=== PATIENT | female | born 1975 | race Native Hawaiian/Other Pacific Islander ===

== ENCOUNTER 2019-06-07 20:15 | Emergency (ER) | payer MEDICARE, MEDICAID, SELFPAY ==
[2019-06-07 20:16] VITALS: BP 90/62; PULSE 92; RESP 18; TEMP 36.4; O2SAT 97; BMI 26.1
--- NOTE | 2019-06-07 21:33 | ED.VISSUMM ---
- ER Visit Summary Date of Service: 06/07/19 Chief Complaint: Peg History of Present Illness: The patient is a 44 F presenting stating that she feels manic. This has been ongoing for the past 3 days. She states she has not slept in 3 days. She has racing thoughts. She has auditory hallucinations. She denies suicidal or homicidal ideation. She has a history of schizophrenia, bipolar disorder, OCD. Physical Examination: Vitals are stable. Patient is afebrile. Alert no acute distress. HEENT exam is unremarkable. Neck is supple. Lungs are clear and equal bilaterally. Heart is regular rate and rhythm. Abdomen is soft nontender nondistended. Extremities are unremarkable. Skin is warm and dry. No focal neurologic deficit. Flight of ideas. No suicidal or homicidal ideation. Remainder of exam is unremarkable. Emergency Department Course and Treatment: CBC, chemistries unremarkable. hCG negative. Tox positive for methamphetamine, benzo, THC. Alcohol negative. Patient was given IV fluids. She was observed in the ED and will be checked out to the oncoming physician. Disposition: Pending Impression: History of schizophrenia and bipolar disorder This note was generated with [employer] dictation software. It may contain incorrect words, spelling, and punctuation that were not noted in review of the chart prior to signing ED Disposition - Plan for ED Patient: Instructions: SCHIZOPHRENIA, General
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
[2019-06-07 21:57] VITALS: BP 87/56; PULSE 70; RESP 16; O2SAT 97
[2019-06-07] MEDS: 0.9% Normal Saline 1,000 ML 999 ML IV (21:58)
[2019-06-07 22:16] LABS: Amphetamine Urine VISTA NEGATIVE (<1000 ng/mL); Barbiturate Urine VISTA NEGATIVE (< 200 ng/mL); Benzodiazepine Urine VISTA POSITIVE (< 200 ng/mL); Cocaine Urine VISTA NEGATIVE (< 300 ng/mL); Ecstacy Urine VISTA POSITIVE (< 500 ng/mL); Methadone Urine VISTA NEGATIVE (< 300 ng/mL); PCP Urine VISTA NEGATIVE (< 25 ng/mL); THC Urine VISTA POSITIVE (< 50 ng/mL); Vista UDS pH Range 6
[2019-06-07 22:18] LABS: Absolute Lymphocyte Count 2.31 X10^3/uL (0.83-4.51); Absolute Neutrophil Count 3.6 X10^3/uL (2.0-7.7); Basophil# 0.04 X10^3/uL; Basophil% 0.6 % (0-1); Eosinophil# 0.14 X10^3/uL; Eosinophils% 2.1 % (0-5); Hematocrit 39.2 % (37-47); Hemoglobin 13.4 g/dL (12.0-15.0); Lymphocyte # 2.31 X10^3/ul (4.0); Lymphocyte % 34.6 % (19-41); Mean Corp Hgb Conc 34.2 g/dL (32-36); Mean Corpuscular Hgb 29.8 pg (27.0-32.0); Mean Corpuscular Volume 87.1 fL (81-99); Mean Platelet Vol. 10.4 fl (6.2-12.0); Monocyte# 0.56 X10^3/uL; Monocyte% 8.4 % (0-10); NRBC Flagged by Analyzer 0 % (0-5); Platelet Count 212 K/mm3 (150-450); RBC Distribution Width CV 11.5 % (11.6-14.6); RBC Distribution Width SD 37.2 fl (35.1-43.9); White Blood Count 6.7 K/mm3 (4.4-11.0)
[2019-06-07 22:27] LABS: Internal QC Validated? YES +Cl - CLEAR BKGD; Pregnancy, Serum, hCG Quali. NEGATIVE Negative
[2019-06-07 22:32] LABS: Anion Gap 7 (5-15); BUN 11 mg/dL (7-18); BUN/Creat Ratio 14.7 RATIO (10-20); Chloride 99 mmol/L (98-107); Creatinine, Serum 0.75 mg/dL (0.55-1.02); EST Glomerular Filtration Rate 90 mL/min (>60); Est Glom Filt Rate - Afr Amer 109 mL/min (>60); Estimated Creatinine Clearance 87.93 ml/min; Glucose 168 mg/dL (74-106); Potassium 3.5 mmol/L (3.5-5.1); Sodium Level 135 mmol/L (136-145)
--- NOTE | 2019-06-07 22:36 | CM.ED ---
SOCIAL WORK DISCUSSED POSITIVE TOX SCREEN WITH DR. REID AND PATIENT. PATIENT ASKING IF METH COULD HAVE BEEN IN [place] SHE SMOKED. PATIENT REMAINS IN AGREEMENT WITH PLAN FOR HOME GOING AND FOLLOW UP WITH [facility] TOMORROW. 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
[2019-06-07 22:52] LABS: Alcohol, Blood (Medical)-Serum < 3.0 mg/dL
--- NOTE | 2019-06-07 23:40 | ED.RN ---
DR REID TO RN TO HOLD BENADRYL. PT IS RESTING COMFORTABLE IN ROOM & BP IS HYPOTENSIVE.
--- NOTE | 2019-06-07 23:58 | ED.DEP ---
ED Disposition - Plan for ED Patient: Instructions: SCHIZOPHRENIA, General
[2019-06-08] MEDS: 0.9% Normal Saline 1,000 ML 999 ML IV (00:02)
[2019-06-08 00:03] VITALS: BP 79/48; PULSE 88; RESP 14; O2SAT 97
== END 2019-06-08 01:09 | disposition home or self-care (01) ==
LOC: ED 22:11
PROVIDERS: Emergency Provider Emergency Medicine
DX: F31.9 Bipolar disorder, unspecified (principal); F42.9 Obsessive-compulsive disorder, unspecified; F20.9 Schizophrenia, unspecified; I95.9 Hypotension, unspecified; E11.9 Type 2 diabetes mellitus without complications; Z79.4 Long term (current) use of insulin; Z79.899 Other long term (current) drug therapy
CPT/HCPCS: 80048; 80307; 80320; 84703; 85025; 96360; 96361; 99282; J7030; G0480

== ENCOUNTER 2023-09-21 12:50 | Emergency (ER) | payer MEDICARE, MEDICAID, SELFPAY ==
[2023-09-21 12:54] VITALS: BP 145/99; PULSE 78; RESP 16; TEMP 36.4; O2SAT 98; BMI 30.2
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
--- NOTE | 2023-09-21 13:33 | ED.RN ---
NO OLD EKG
[2023-09-21 13:36] LABS: Absolute Lymphocyte Count 1.91 X10^3/uL (0.83-4.51); Absolute Neutrophil Count 4.4 X10^3/uL (2.0-7.7); Basophil# 0.08 X10^3/uL; Basophil% 1.1 % (0-1); Eosinophil# 0.22 X10^3/uL; Hematocrit 39.4 % (37-47); Hemoglobin 13.1 g/dL (12.0-15.0); Lymphocyte # 1.91 X10^3/ul (0.83-4.51); Lymphocyte % 26.5 % (19-41); Mean Corp Hgb Conc 33.2 g/dL (32-36); Mean Corpuscular Hgb 28.9 pg (27.0-32.0); Mean Corpuscular Volume 86.8 fL (81-99); Mean Platelet Vol. 10.4 fl (6.2-12.0); Monocyte# 0.55 X10^3/uL; Monocyte% 7.6 % (0-10); NRBC Flagged by Analyzer 0 % (0-5); Neutrophil # 4.43 X10^3/uL (2.7-7.7); Neutrophil % 61.4 % (47-70); POSITIVE COUNT YES; RBC Distribution Width CV 11.9 % (11.6-14.6); RBC Distribution Width SD 38.1 fl (35.1-43.9); Red Blood Count 4.54 M/mm3 (4.2-5.4); White Blood Count 7.2 K/mm3 (4.4-11.0)
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
[2023-09-21 13:51] LABS: Differential Indicated SCAN CRITERIA MET
[2023-09-21 13:53] LABS: Platelet Estimate ADEQUATE (ADEQ)
[2023-09-21 13:58] LABS: Anion Gap 2 (5-15); BUN 10 mg/dL (7-18); BUN/Creat Ratio 11.5 RATIO (10-20); Calcium,Total 8.6 mg/dL (8.5-10.1); Chloride 101 mmol/L (98-107); Creatinine, Serum 0.87 mg/dL (0.55-1.02); EST Glomerular Filtration Rate 75 mL/min (>60); Est Glom Filt Rate - Afr Amer 90 mL/min (>60); Estimated Creatinine Clearance 79.58 ml/min; Glucose 320 mg/dL (74-106); Potassium 4.3 mmol/L (3.5-5.1); Sodium Level 129 mmol/L (136-145); Troponin-I HS < 3 pg/mL (3.0-54.0)
[2023-09-21 14:03] VITALS: BP 127/89; PULSE 79; RESP 14; O2SAT 96
[2023-09-21] MEDS: ALPRAZolam 0.5 MG Tablet PO (14:46)
[2023-09-21 15:00] VITALS: BP 129/86; RESP 14; O2SAT 96
[2023-09-21 15:44] VITALS: BP 126/75; PULSE 71; RESP 15; O2SAT 98
--- NOTE | 2023-09-21 18:33 | CM.ED ---
Social Work SW consulted for resources and support. SW introduced self and role to patient. Pt reports she was going to [facility] for mental health services and they d/c'd her as patient due to her living technically in [facility]. Pt has been going to [facility] but reports psychiatrist keeps prescribing meds that have negative side effects for her and will not prescribe her typical meds she has been taking for years previously. Pt reports PTSD, bipolar, and schizophrenia. Pt reports her father 3 weeks ago which has been an added stressor along with not having her medications. Pt is looking for services/psychiatrist that will take her insurance. SW provided emotional support. Pt agreeable to have SW call and attempt to find appropriate services. SW called [facility] [phone] as they have psych services and locations in [place] and [place]. [facility] [phone] has a waitlist but additionally does not take MCR A&B. SW could not make contact with any other providers at this time but most are on waitlists. SW provided patient with mental health urgent care information at [facility] in [place]. Pt reports she did go there but they wanted to keep me there locked up to change my meds. Pt does not want to go to a facility or be in groups. Pt denies interest in PHP or IOP. SW suggested voluntary stay at [place] for medication review. Pt denies SI/HI and reports she doesn't need to be kept anywhere. SW provided patient with information for all local psychiatrists for [facility]. Pt given handouts on coping skills and grief workbook. Rosa M Dillon SLIPCOVER CUTTER, CREDIT VERIFICATION CLERK
== END 2023-09-21 15:45 | disposition home or self-care (01) ==
PROVIDERS: Emergency Provider Emergency Medicine; PCP Family Medicine; Visit Provider Emergency Medicine
DX: R07.89 Other chest pain (principal); E11.9 Type 2 diabetes mellitus without complications; Z79.4 Long term (current) use of insulin; F43.22 Adjustment disorder with anxiety; F17.210 Nicotine dependence, cigarettes, uncomplicated; Z63.4 Disappearance and death of family member; Z82.49 Family history of ischemic heart disease and other diseases of the circulatory system
CPT/HCPCS: 71046; 73090; 80048; 84484; 85025; 93005; 99283; A4216

== ENCOUNTER 2024-03-27 17:38 | Emergency (ER) | payer MEDICARE, MEDICAID, SELFPAY ==
[2024-03-27] VITALS (7 sets, daily range): BP systolic 105–137; BP diastolic 51–97; PULSE 68–111; RESP 16–19; TEMP 36.2–36.8; O2SAT 95–99; BMI 29.5
[2024-03-27 18:11] LABS: Absolute Lymphocyte Count 3.17 X10^3/uL (0.83-4.51); Absolute Neutrophil Count 6.4 X10^3/uL (2.0-7.7); Basophil% 0.9 % (0-1); Eosinophil# 0.14 X10^3/uL; Eosinophils% 1.3 % (0-5); Hematocrit 45.1 % (37-47); Hemoglobin 15.6 g/dL (12.0-15.0); Lymphocyte # 3.17 X10^3/ul (0.83-4.51); Lymphocyte % 29.2 % (19-41); Mean Corp Hgb Conc 34.6 g/dL (32-36); Mean Corpuscular Hgb 28.9 pg (27.0-32.0); Mean Corpuscular Volume 83.7 fL (81-99); Mean Platelet Vol. 10.2 fl (6.2-12.0); Monocyte# 0.97 X10^3/uL; Monocyte% 8.9 % (0-10); NRBC Flagged by Analyzer 0 % (0-5); Neutrophil # 6.43 X10^3/uL (2.7-7.7); Neutrophil % 59.4 % (47-70); Platelet Count 289 K/mm3 (150-450); RBC Distribution Width CV 12.1 % (11.6-14.6); RBC Distribution Width SD 36.5 fl (35.1-43.9); Red Blood Count 5.39 M/mm3 (4.2-5.4); White Blood Count 10.8 K/mm3 (4.4-11.0)
--- NOTE | 2024-03-27 18:25 | RAD_ITS ---
STUDY: X-RAY CHEST REASON FOR EXAM: Female, 48 years old. Chest pain TECHNIQUE: Single AP portable view of the chest. COMPARISON: September 21, 2023 FINDINGS: The lungs are clear and expanded. There is no demonstrated pleural abnormality. Normal size heart. Normal mediastinum and buddy. Normal visualized pulmonary arteries. Normal visualized aortic arch and descending thoracic aorta. Normal visualized thoracic spine. Normal visualized ribs, clavicles, and shoulders. There is no demonstrated abnormality of the visualized soft tissue structures of the upper abdomen. RAD/Chest 1 View (Portable) IMPRESSION: Normal x-ray examination of the chest. Electronically Signed: Troy Orosco MD at 19:11 EDT ,
[2024-03-27 18:27] LABS: Anion Gap 8 (5-15); BUN 21 mg/dL (7-18); BUN/Creat Ratio 17.9 RATIO (10-20); Calcium,Total 9.6 mg/dL (8.5-10.1); Chloride 96 mmol/L (98-107); Creatinine, Serum 1.17 mg/dL (0.55-1.02); EST Glomerular Filtration Rate 53 mL/min (>60); Est Glom Filt Rate - Afr Amer 64 mL/min (>60); Glucose 228 mg/dL (74-106); Potassium 3.9 mmol/L (3.5-5.1); Sodium Level 130 mmol/L (136-145); Troponin-I HS (w/2H Reflex) 4 pg/mL (3.0-54.0)
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
[2024-03-27] MEDS: Aspirin 81 MG TAB.CHEW 324 MG PO (18:58)
[2024-03-27 19:55] LABS: D-Dimer Quantitative (DVT/PE) 6.11 FEU/ug/m (0.27-0.49)
--- NOTE | 2024-03-27 20:01 | CT_ITS ---
STUDY: CTA CHEST REASON FOR EXAM: Female, 48 years old. Elevated D-dimer RADIATION DOSAGE (If Supplied By Facility): CTDIvol = ( 12.66 ) mGy, DLP = ( 537.27 ) mGycm TECHNIQUE: The examination was performed with the intravenous administration of IV 100mL [id number]-[id number]. Post-processing of the angiographic images was performed, with multiplanar reformation and 3D reconstruction. Individualized dose optimization techniques were used for this CT. COMPARISON: Chest x-ray FINDINGS: Normal enhancement of the main pulmonary artery and right and left pulmonary arteries. Normal enhancement of the bilateral peripheral pulmonary arteries. There is no demonstrated pulmonary embolism. There is ectasia of the ascending aorta measuring 3.9 cm. There is no demonstrated aortic dissection. Normal heart and pericardium. Normal mediastinum. Normal hilar regions. Normal visualized trachea and bronchi. The lungs are well expanded. Normal pulmonary parenchyma. Normal pleura. Normal chest wall structures. There are degenerative changes of thoracic spine. Normal visualized upper abdomen. CT/CTA Chest W/WO Contrast IMPRESSION: Normal CTA chest examination, without a demonstrated pulmonary embolism or arterial dissection. Electronically Signed: Troy Orosco MD at 21:15 EDT ,
[2024-03-27 20:02] LABS: Reflex Troponin-HS? (from REC) Y
[2024-03-27] MEDS: 0.9% Normal Saline (1000mL) 1,000 ML 999 ML IV (20:23)
[2024-03-27 20:44] LABS: Troponin-I HS 4 pg/mL (3.0-54.0)
== END 2024-03-27 22:04 | disposition home or self-care (01) ==
PROVIDERS: Emergency Provider Emergency Medicine; PCP Family Medicine; Visit Provider Emergency Medicine
DX: R07.9 Chest pain, unspecified (principal); E11.9 Type 2 diabetes mellitus without complications; F17.210 Nicotine dependence, cigarettes, uncomplicated
CPT/HCPCS: 71045; 71275; 80048; 84484; 85025; 85379; 93005; 96360; 99284; J7030; Q9967; A4216